=== PATIENT | female | born 1940 | race Caucasian/White ===

== ENCOUNTER 2019-01-04 07:58 | Day surgery (SDC) | payer OTHER ==
[2019-01-03 14:47] VITALS: BMI 37.4
[2019-01-04 09:36] VITALS: TEMP 98
[2019-01-04 10:12] VITALS: BP 127/63; PULSE 69
--- NOTE | 2019-01-05 11:07 | PATH ---
Surgical Pathology Report Patient Name: BRIGIDA BADILLO [facility]. Rec. #: [id number] /Age/Gender: 1940 (Age: 78) / F Account: [id number] Location: U-ENDOSCOPY Taken: 01/04/2019 Received: 01/04/2019 Reported: 01/05/2019 Physicians: Monica Hutson M.D. Specimen(s) Received A: DUODENUM 2ND PORTION AND BULB B: PRE PYLORIC BIOPSY C: ANTRUM AND GASTRIC BODY Clinical History Abdominal pain Postoperative diagnosis: Gastric ulcer Final Diagnosis A. DUODENUM, SECOND PORTION AND BULB, BIOPSY: DUODENAL MUCOSA WITH NO PATHOLOGIC CHANGES. NO HISTOLOGIC EVIDENCE OF GLUTEN SENSITIVE ENTEROPATHY (CELIAC SPRUE) IDENTIFIED. THIS B. 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 NO DYSPLASIA IDENTIFIED. IMMUNOSTAIN FOR H. PYLORI IS NEGATIVE. C. STOMACH, ANTRUM AND BODY, BIOPSY: MILD CHRONIC GASTRITIS WITH FOCAL INTESTINAL METAPLASIA. NO DYSPLASIA IDENTIFIED. IMMUNOSTAIN FOR H. PYLORI IS NEGATIVE. Electronically Signed Herrera Kiser M.D. Gross Description A. Received in formalin, labeled "biopsy duodenum second portion and bulb" are 3 gordon, irregular portions of soft tissue ranging from 0.4-0.7 cm. in greatest dimension. The specimens are submitted in toto in one cassette. B. Received in formalin, labeled "biopsy prepyloric ulcerated mucosa" are 6 gordon, irregular portions of soft tissue ranging from 0.3-0.5 cm. in greatest dimension. The specimens are submitted in toto in one cassette. C. Received in formalin, labeled "biopsy antrum and gastric body" are 4 gordon, irregular portions of soft tissue ranging from 0.2-0.5 cm. in greatest dimension. The specimens are submitted in toto in one cassette. 01/04/201901/04/2019
== END 2019-01-04 10:34 | disposition home or self-care (01) ==
LOC: JASU-ENDO 07:58
PROVIDERS: ATTEND Internal Medicine Gastroenterology
PROC: 0DB68ZX Excision of Stomach, Via Natural or Artificial Opening Endoscopic, Diagnostic (ICD-10-PCS; principal; 2019-01-04 09:00)
DX: K25.9 Gastric ulcer, unspecified as acute or chronic, without hemorrhage or perforation (principal); K29.70 Gastritis, unspecified, without bleeding; I10 Essential (primary) hypertension; E11.9 Type 2 diabetes mellitus without complications
CPT/HCPCS: 88305-TC; 88342-TC

== ENCOUNTER 2019-05-01 06:49 | Day surgery (SDC) | payer OTHER ==
[2019-04-28 14:45] VITALS: BMI 37.4
[2019-05-01 08:26] VITALS: TEMP 98.2
[2019-05-01 09:17] VITALS: BP 139/64; PULSE 63
--- NOTE | 2019-05-02 16:27 | PATH ---
Surgical Pathology Report Patient Name: BRIGIDA BADILLO [facility]. Rec. #: [id number] /Age/Gender: 1940 (Age: 78) / F Account: [id number] Location: U-ENDOSCOPY Taken: 05/01/2019 Received: 05/01/2019 Reported: 05/02/2019 Physicians: Monica Hutson M.D. Specimen(s) Received A: BX SECOND PORTION DUODENUM & DUODENAL BULB B: PREPYLORIC ULCER C: BX GASTRIC ANTRUM Clinical History Abdominal pain Postoperative diagnosis: Prepyloric ulcer, antral gastritis Final Diagnosis A. SECOND PORTION DUODENUM AND BULB, BIOPSY: DUODENUM MUCOSA WITH NO SIGNIFICANT PATHOLOGIC CHANGE. NO HISTOLOGIC EVIDENCE OF CELIAC DISEASE. B. PREPYLORIC ULCER, BIOPSY: GASTRIC MUCOSA WITH CHRONIC GASTRITIS, ULCERATION AND REGENERATIVE CHANGE. IMMUNOSTAINS FOR H. PYLORI IS NEGATIVE. POSITIVE FOR INTESTINAL METAPLASIA. C. GASTRIC ANTRUM, BIOPSY: GASTRIC MUCOSA WITH CHRONIC GASTRITIS. IMMUNOSTAINS FOR H. PYLORI IS NEGATIVE. NEGATIVE FOR INTESTINAL METAPLASIA. Electronically Signed Kasi Choi M.D. Gross Description A. Received in formalin, labeled "biopsy second portion of duodenum and duodenal bulb" are 3 gordon, irregular portions of soft tissue ranging from 0.4-0.5 cm. in greatest dimension. The specimens are submitted in toto in one cassette. B. Received in formalin, labeled "biopsy prepyloric ulcer" are 3 gordon, irregular portions of soft tissue averaging 0.3 cm. in greatest dimension. The specimens are submitted in toto in one cassette. C. Received in formalin, labeled "biopsy gastric antrum" are 3 gordon, irregular portions of soft tissue ranging from 0.4-0.7 cm. in greatest dimension. The specimens are submitted in toto in one cassette. DL/05/01/2019 saudi05/01/2019
== END 2019-05-01 09:23 | disposition home or self-care (01) ==
LOC: JASU-ENDO 06:49
PROVIDERS: ATTEND Internal Medicine Gastroenterology
PROC: 0DB68ZX Excision of Stomach, Via Natural or Artificial Opening Endoscopic, Diagnostic (ICD-10-PCS; 2019-05-01)
PROC: 0DB98ZX Excision of Duodenum, Via Natural or Artificial Opening Endoscopic, Diagnostic (ICD-10-PCS; principal; 2019-05-01 08:00)
DX: K25.7 Chronic gastric ulcer without hemorrhage or perforation (principal); K31.9 Disease of stomach and duodenum, unspecified; K29.50 Unspecified chronic gastritis without bleeding
CPT/HCPCS: 88305-TC; 88342-TC

== ENCOUNTER 2020-09-03 18:57 | Inpatient (IN) | payer OTHER ==
[2020-09-03] MEDS ORDERED: DEXAMETHASONE SOD PHOSPHATE 20 MG/5 ML VIAL IVPB ONE (19:30)
[2020-09-03] MEDS ORDERED: ACETAMINOPHEN 1000 MG/100 ML BAG IVPB ONE (21:04)
[2020-09-03] MEDS ORDERED: ACETAMINOPHEN INJECTION 100 ML IVPB ONE (21:11)
[2020-09-03] MEDS ORDERED: DEXAMETHASONE SOD PHOSPHATE 10 MG/1 ML VIAL ONE (21:11)
[2020-09-03 21:40] LABS: BASO % 0.4 % (0-2.0); EOS % 0.5 % (0-4.5); HEMATOCRIT 40.2 % (32.4-45.2); HEMOGLOBIN 13.4 GM/dL (10.7-15.3); LYMPH % 6.5 % (8-40); MCH 31.1 pg (25.7-33.7); MCHC 33.3 g/dl (32.0-36.0); MEAN CELL VOLUME 93.5 fl (80-96); MEAN PLT VOLUME 7.6 fl (7.5-11.1); MONO % 11.2 % (3.8-10.2); NEUT % 81.4 % (42.8-82.8); PLATELET COUNT 490 K/MM3 (134-434); RBC 4.31 M/mm3 (3.60-5.2); RDW 13.6 % (11.6-15.6); WHITE BLOOD COUNT 12.5 K/mm3 (4.0-10.0)
[2020-09-03 21:48] LABS: INR 1.21 (0.83-1.09); PROTHROMBIN TIME (PATIENT) 14.6 SEC (9.7-13.0)
[2020-09-03 21:59] LABS: CHLORIDE 92 mmol/L (98-107); SODIUM 133 mmol/L (136-145)
[2020-09-03 22:03] LABS: CALCIUM 8.5 mg/dL (8.5-10.1)
[2020-09-03 22:04] LABS: ALBUMIN 2.4 g/dl (3.4-5.0); ANION GAP 10 MMOL/L (8-16); BLOOD UREA NITROGEN 7.1 mg/dL (7-18); CO2 31 mmol/L (21-32); GLUCOSE,RANDOM 113 mg/dL (74-106); MAGNESIUM 1.9 mg/dL (1.8-2.4)
[2020-09-03 22:07] LABS: CREATININE 0.5 mg/dL (0.55-1.3); PHOSPHOROUS 2.6 mg/dL (2.5-4.9); SGOT/AST 42 U/L (15-37); SGPT/ALT 30 U/L (13-61)
[2020-09-03 22:08] LABS: TOT PROT 6.9 g/dl (6.4-8.2)
[2020-09-03 22:10] LABS: ALK PHOS 86 U/L (45-117)
[2020-09-03 22:13] LABS: N-TERMINAL BNP 335.7 pg/ml (5-450)
[2020-09-03] MEDS ORDERED: SODIUM CHLORIDE 0.9% 500 ML INFUS.BAG IV ONE (22:16)
[2020-09-03 22:29] LABS: BILIRUBIN,TOTAL 0.6 mg/dL (0.2-1); LDH 450 U/L (84-246)
[2020-09-03 22:56] LABS: ANISOCYTOSIS 1+; MACROCYTOSIS 1+; PLATELET ESTIMATE INCREASED
[2020-09-04] MEDS ORDERED: ACETAMINOPHEN 1000 MG/100 ML BAG IVPB PRN (00:41)
[2020-09-04] MEDS ORDERED: AZITHROMYCIN IVPB 500 MG in DEXTROSE 5%-WATER - 250 ML IVPB ONE (00:42)
[2020-09-04] MEDS ORDERED: SODIUM CHLORIDE 1,000 ML IV SCH ×2 (00:45→10:07)
[2020-09-04] MEDS ORDERED: AZITHROMYCIN IVPB 500 MG/250 ML BAG IVPB ONE ×2 (02:04→09:23)
[2020-09-04 02:50] LABS: EPI CELLS >36 /uL (0-25.1); HYALINE CASTS 3 /uL (0-3.1); PH,URINE 7.5 (5.0-8.0); URINE APPEARANCE CLOUDY; URINE BACTERIA 4773 /uL (0-1359); URINE BILIRUBIN NEGATIVE (NEGATIVE); URINE COLOR YELLOW; URINE GLUCOSE (UA) NEGATIVE (NEGATIVE); URINE KETONE TRACE (NEGATIVE); URINE LEUK ESTERASE 3+ (NEGATIVE); URINE NITRITE NEGATIVE (NEGATIVE); URINE PROTEIN NEGATIVE (NEGATIVE); URINE WBC 773 /uL (0-25.8)
[2020-09-04 06:08] LABS: URINE RBC 25 /uL (0-23.9)
[2020-09-04 07:48] LABS: BASO % 0.4 % (0-2.0); HEMATOCRIT 38.4 % (32.4-45.2); HEMOGLOBIN 13.1 GM/dL (10.7-15.3); MCH 31.7 pg (25.7-33.7); MEAN CELL VOLUME 93.3 fl (80-96); MEAN PLT VOLUME 7.9 fl (7.5-11.1); MONO % 5.5 % (3.8-10.2); NEUT % 87.1 % (42.8-82.8); PLATELET COUNT 477 K/MM3 (134-434); RBC 4.12 M/mm3 (3.60-5.2); RDW 13.7 % (11.6-15.6); WHITE BLOOD COUNT 7.7 K/mm3 (4.0-10.0)
[2020-09-04 08:02] LABS: ALBUMIN 2.1 g/dl (3.4-5.0); BLOOD UREA NITROGEN 6.6 mg/dL (7-18)
[2020-09-04 08:03] LABS: CALCIUM 7.9 mg/dL (8.5-10.1); MAGNESIUM 2.1 mg/dL (1.8-2.4)
[2020-09-04 08:05] LABS: CREATININE 0.5 mg/dL (0.55-1.3)
[2020-09-04 08:06] LABS: PHOSPHOROUS 2.9 mg/dL (2.5-4.9)
[2020-09-04 08:07] LABS: BILIRUBIN,TOTAL 1.3 mg/dL (0.2-1); TOT PROT 6.3 g/dl (6.4-8.2)
[2020-09-04 08:46] LABS: EPI CELLS 10 /uL (0-25.1); HYALINE CASTS 1 /uL (0-3.1); URINE APPEARANCE CLEAR; URINE BACTERIA 1173 /uL (0-1359); URINE BILIRUBIN NEGATIVE (NEGATIVE); URINE COLOR YELLOW; URINE GLUCOSE (UA) NEGATIVE (NEGATIVE); URINE KETONE NEGATIVE (NEGATIVE); URINE LEUK ESTERASE 2+ (NEGATIVE); URINE NITRITE NEGATIVE (NEGATIVE); URINE PROTEIN NEGATIVE (NEGATIVE); URINE RBC 10 /uL (0-23.9); URINE WBC 327 /uL (0-25.8)
[2020-09-04] MEDS ORDERED: ASCORBIC ACID 500 MG TABLET (FP) ONE (09:22)
[2020-09-04] MEDS ORDERED: DEXAMETHASONE SOD PHOSPHATE 10 MG/1 ML VIAL ONE (09:22)
[2020-09-04] MEDS ORDERED: FAMOTIDINE 20 MG TABLET ONE (09:22)
[2020-09-04] MEDS ORDERED: ENOXAPARIN NA (PORCINE) 40 MG/0.4 ML DISP.SYRIN SQ ONE (09:23)
[2020-09-04] MEDS ORDERED: CHOLECALCIFEROL (VIT D3) 1,000 UNIT (25 MCG) TABLET ONE (09:23)
[2020-09-04] MEDS ORDERED: ZINC SULFATE 220 MG CAPSULE (FP) ONE (09:23)
[2020-09-04] MEDS ORDERED: CEFTRIAXONE 1 GM/50 ML BAG ONE (09:23)
[2020-09-04] MEDS: ZINC SULFATE 220 MG CAPSULE (FP) PO SCH (09:42)
[2020-09-04] MEDS: ASCORBIC ACID 500 MG TABLET (FP) PO SCH ×2 (09:42→22:50)
[2020-09-04] MEDS: CHOLECALCIFEROL (VIT D3) 1,000 UNIT (25 MCG) TABLET PO SCH (09:42)
[2020-09-04] MEDS: DEXAMETHASONE SOD PHOSPHATE 4 MG/1 ML VIAL IVPUSH SCH (09:42)
[2020-09-04] MEDS: CEFTRIAXONE 1 GM in DEXTROSE 5%-WATER - 50 ML IVPB SCH (09:42)
[2020-09-04] MEDS: FAMOTIDINE 20 MG TABLET PO SCH ×2 (09:42→22:50)
[2020-09-04] MEDS: AZITHROMYCIN IVPB 250 MG in DEXTROSE 5%-WATER - 250 ML IVPB SCH (09:42)
[2020-09-04] MEDS ORDERED: ENOXAPARIN NA (PORCINE) 40 MG/0.4 ML DISP.SYRIN SQ SCH (10:00)
[2020-09-04] MEDS ORDERED: SODIUM CHLORIDE 500 ML IV STA ×2 (10:11→18:22)
[2020-09-04] MEDS: SODIUM CHLORIDE 1,000 ML IV SCH ×2 (10:38→22:51)
[2020-09-04] MEDS ORDERED: REMDESIVIR 200 MG in SODIUM CHLORIDE 210 ML IVPB ONE (16:00)
[2020-09-04] MEDS: ENOXAPARIN NA (PORCINE) 60 MG/0.6 ML DISP.SYRIN SQ SCH (22:49)
[2020-09-05 09:01] LABS: BASO % 0.2 % (0-2.0); EOS % 0.4 % (0-4.5); HEMATOCRIT 39.1 % (32.4-45.2); HEMOGLOBIN 13.1 GM/dL (10.7-15.3); LYMPH % 6.2 % (8-40); MCH 31.4 pg (25.7-33.7); MCHC 33.6 g/dl (32.0-36.0); MEAN CELL VOLUME 93.4 fl (80-96); MEAN PLT VOLUME 7.5 fl (7.5-11.1); MONO % 8.2 % (3.8-10.2); PLATELET COUNT 573 K/MM3 (134-434); RBC 4.19 M/mm3 (3.60-5.2); RDW 13.7 % (11.6-15.6)
[2020-09-05] MEDS ORDERED: PT OWN MED DRAWER 7, Y5N ONE (09:16)
[2020-09-05] MEDS ORDERED: DEXTROSE 5%-WATER - 50 ML IVPB ONE (09:16)
[2020-09-05] MEDS ORDERED: cefTRIAXone SODIUM 1 GM VIAL ONE (09:16)
[2020-09-05 09:25] LABS: CALCIUM 8.1 mg/dL (8.5-10.1)
[2020-09-05 09:26] LABS: ALBUMIN 2.2 g/dl (3.4-5.0); BLOOD UREA NITROGEN 7.6 mg/dL (7-18); MAGNESIUM 1.9 mg/dL (1.8-2.4)
[2020-09-05] MEDS: ENOXAPARIN NA (PORCINE) 60 MG/0.6 ML DISP.SYRIN SQ SCH ×2 (09:26→22:43)
[2020-09-05] MEDS: DEXAMETHASONE SOD PHOSPHATE 4 MG/1 ML VIAL IVPUSH SCH (09:26)
[2020-09-05] MEDS: CEFTRIAXONE 1 GM in DEXTROSE 5%-WATER - 50 ML IVPB SCH (09:26)
[2020-09-05 09:27] LABS: BILIRUBIN,TOTAL 1.2 mg/dL (0.2-1); TOT PROT 5.9 g/dl (6.4-8.2)
[2020-09-05] MEDS: ASCORBIC ACID 500 MG TABLET (FP) PO SCH ×2 (09:27→22:43)
[2020-09-05] MEDS: CHOLECALCIFEROL (VIT D3) 1,000 UNIT (25 MCG) TABLET PO SCH (09:27)
[2020-09-05] MEDS: FAMOTIDINE 20 MG TABLET PO SCH ×2 (09:27→22:43)
[2020-09-05] MEDS: ZINC SULFATE 220 MG CAPSULE (FP) PO SCH (09:27)
[2020-09-05] MEDS: SODIUM CHLORIDE 1,000 ML IV SCH ×2 (09:27→11:37)
[2020-09-05 09:29] LABS: CREATININE 0.4 mg/dL (0.55-1.3); PHOSPHOROUS 2.6 mg/dL (2.5-4.9)
[2020-09-05 10:13] LABS: ERYTHROCYTE SEDIMENTATION RATE 75 mm/hr (0-30)
[2020-09-05] MEDS ORDERED: POTASSIUM CHLORIDE TABS 20 MEQ TABLET.ER (FP) PO ONE (11:00)
[2020-09-05 11:14] LABS: ANISOCYTOSIS 1+; MACROCYTOSIS 1+; PLATELET ESTIMATE INCREASED
[2020-09-05] MEDS: AZITHROMYCIN IVPB 250 MG in DEXTROSE 5%-WATER - 250 ML IVPB SCH (11:26)
[2020-09-05] MEDS: KCL 10 MEQ IVPB 10 MEQ/100 ML INFUS.BAG IVPB SCH ×3 (11:38→22:43)
[2020-09-05] MEDS ORDERED: AZITHROMYCIN IVPB 250 MG in DEXTROSE 5%-WATER - 250 ML IVPB ONE (15:14)
[2020-09-05] MEDS ORDERED: ACETAMINOPHEN 500 MG TABLET (FP) PO PRN (15:46)
[2020-09-05] MEDS: REMDESIVIR 100 MG in SODIUM CHLORIDE 230 ML IVPB SCH (18:03)
[2020-09-05] MEDS ORDERED: KCL 10 MEQ IVPB 10 MEQ/100 ML INFUS.BAG IVPB SCH (22:30)
[2020-09-06] MEDS: SODIUM CHLORIDE 1,000 ML IV SCH (05:27)
[2020-09-06 09:10] LABS: BASO % 0.3 % (0-2.0); EOS % 0.6 % (0-4.5); HEMATOCRIT 36.9 % (32.4-45.2); HEMOGLOBIN 12.1 GM/dL (10.7-15.3); LYMPH % 9.5 % (8-40); MCH 30.9 pg (25.7-33.7); MCHC 32.9 g/dl (32.0-36.0); MEAN CELL VOLUME 93.9 fl (80-96); MEAN PLT VOLUME 7.8 fl (7.5-11.1); MONO % 10.3 % (3.8-10.2); NEUT % 79.3 % (42.8-82.8); PLATELET COUNT 540 K/MM3 (134-434); RBC 3.92 M/mm3 (3.60-5.2); RDW 13.6 % (11.6-15.6); WHITE BLOOD COUNT 14.4 K/mm3 (4.0-10.0)
[2020-09-06 09:31] LABS: ALBUMIN 2.1 g/dl (3.4-5.0); BLOOD UREA NITROGEN 9.6 mg/dL (7-18)
[2020-09-06 09:34] LABS: CREATININE 0.4 mg/dL (0.55-1.3); PHOSPHOROUS 2.7 mg/dL (2.5-4.9)
[2020-09-06 09:35] LABS: TOT PROT 5.6 g/dl (6.4-8.2)
[2020-09-06 09:37] LABS: BILIRUBIN,TOTAL 0.5 mg/dL (0.2-1)
[2020-09-06 10:00] LABS: ERYTHROCYTE SEDIMENTATION RATE 74 mm/hr (0-30)
[2020-09-06] MEDS ORDERED: cefTRIAXone SODIUM 1 GM VIAL ONE (10:08)
[2020-09-06] MEDS ORDERED: DEXTROSE 5%-WATER - 50 ML IVPB ONE (10:08)
[2020-09-06] MEDS: CHOLECALCIFEROL (VIT D3) 1,000 UNIT (25 MCG) TABLET PO SCH (10:11)
[2020-09-06] MEDS: ASCORBIC ACID 500 MG TABLET (FP) PO SCH ×2 (10:11→22:51)
[2020-09-06] MEDS: DEXAMETHASONE SOD PHOSPHATE 4 MG/1 ML VIAL IVPUSH SCH (10:11)
[2020-09-06] MEDS: ENOXAPARIN NA (PORCINE) 60 MG/0.6 ML DISP.SYRIN SQ SCH ×2 (10:11→22:51)
[2020-09-06] MEDS: FAMOTIDINE 20 MG TABLET PO SCH ×2 (10:11→22:51)
[2020-09-06] MEDS: CEFTRIAXONE 1 GM in DEXTROSE 5%-WATER - 50 ML IVPB SCH (10:12)
[2020-09-06] MEDS: ZINC SULFATE 220 MG CAPSULE (FP) PO SCH (10:14)
[2020-09-06] MEDS ORDERED: guaiFENesin/D-METHORPHAN HB 10 ML UNIT-DOSE CUPS PO PRN (10:16)
[2020-09-06 11:07] LABS: PLATELET ESTIMATE INCREASED
[2020-09-06] MEDS: AZITHROMYCIN IVPB 250 MG in DEXTROSE 5%-WATER - 250 ML IVPB SCH (11:37)
[2020-09-06 12:05] VITALS: BMI 25.5
[2020-09-06] MEDS: REMDESIVIR 100 MG in SODIUM CHLORIDE 230 ML IVPB SCH (16:07)
[2020-09-07 09:19] LABS: BASO % 0.3 % (0-2.0); EOS % 0.7 % (0-4.5); HEMATOCRIT 38.3 % (32.4-45.2); HEMOGLOBIN 12.8 GM/dL (10.7-15.3); LYMPH % 13.9 % (8-40); MCH 31.5 pg (25.7-33.7); MCHC 33.4 g/dl (32.0-36.0); MEAN CELL VOLUME 94.4 fl (80-96); MEAN PLT VOLUME 7.7 fl (7.5-11.1); MONO % 10.6 % (3.8-10.2); NEUT % 74.5 % (42.8-82.8); PLATELET COUNT 555 K/MM3 (134-434); RBC 4.06 M/mm3 (3.60-5.2); RDW 13.9 % (11.6-15.6); WHITE BLOOD COUNT 13.5 K/mm3 (4.0-10.0)
[2020-09-07 09:55] LABS: ALBUMIN 2.2 g/dl (3.4-5.0); BLOOD UREA NITROGEN 11.6 mg/dL (7-18)
[2020-09-07 09:57] LABS: CALCIUM 8.1 mg/dL (8.5-10.1)
[2020-09-07 10:00] LABS: PHOSPHOROUS 3.1 mg/dL (2.5-4.9)
[2020-09-07 10:01] LABS: BILIRUBIN,TOTAL 0.5 mg/dL (0.2-1); CREATININE 0.4 mg/dL (0.55-1.3); TOT PROT 5.8 g/dl (6.4-8.2)
[2020-09-07] MEDS ORDERED: cefTRIAXone SODIUM 1 GM VIAL ONE (10:11)
[2020-09-07] MEDS ORDERED: PT OWN MED DRAWER 7, Y5N ONE (10:11)
[2020-09-07] MEDS ORDERED: DEXTROSE 5%-WATER - 50 ML IVPB ONE (10:11)
[2020-09-07] MEDS: CEFTRIAXONE 1 GM in DEXTROSE 5%-WATER - 50 ML IVPB SCH (10:13)
[2020-09-07] MEDS: DEXAMETHASONE SOD PHOSPHATE 4 MG/1 ML VIAL IVPUSH SCH (10:17)
[2020-09-07] MEDS: ZINC SULFATE 220 MG CAPSULE (FP) PO SCH (10:17)
[2020-09-07] MEDS: ENOXAPARIN NA (PORCINE) 60 MG/0.6 ML DISP.SYRIN SQ SCH ×2 (10:17→21:58)
[2020-09-07] MEDS: FAMOTIDINE 20 MG TABLET PO SCH ×2 (10:17→21:58)
[2020-09-07] MEDS: CHOLECALCIFEROL (VIT D3) 1,000 UNIT (25 MCG) TABLET PO SCH (10:17)
[2020-09-07] MEDS: ASCORBIC ACID 500 MG TABLET (FP) PO SCH ×2 (10:17→21:58)
[2020-09-07] MEDS: AZITHROMYCIN IVPB 250 MG in DEXTROSE 5%-WATER - 250 ML IVPB SCH (11:19)
[2020-09-07 11:37] LABS: ERYTHROCYTE SEDIMENTATION RATE 53 mm/hr (0-30)
[2020-09-07 11:51] LABS: ANISOCYTOSIS 1+; MACROCYTOSIS 1+; PLATELET ESTIMATE INCREASED
[2020-09-07] MEDS: REMDESIVIR 100 MG in SODIUM CHLORIDE 230 ML IVPB SCH (16:52)
[2020-09-08 10:02] LABS: BASO % 0.4 % (0-2.0); EOS % 0.3 % (0-4.5); HEMATOCRIT 38.4 % (32.4-45.2); HEMOGLOBIN 13.1 GM/dL (10.7-15.3); LYMPH % 12.9 % (8-40); MCH 32.1 pg (25.7-33.7); MEAN CELL VOLUME 94.2 fl (80-96); MONO % 10.8 % (3.8-10.2); NEUT % 75.6 % (42.8-82.8); PLATELET COUNT 622 K/MM3 (134-434); RBC 4.08 M/mm3 (3.60-5.2); WHITE BLOOD COUNT 15.5 K/mm3 (4.0-10.0)
[2020-09-08] MEDS ORDERED: PT OWN MED DRAWER 7, Y5N ONE (10:16)
[2020-09-08] MEDS ORDERED: cefTRIAXone SODIUM 1 GM VIAL ONE (10:16)
[2020-09-08] MEDS ORDERED: DEXTROSE 5%-WATER - 50 ML IVPB ONE (10:17)
[2020-09-08] MEDS: ASCORBIC ACID 500 MG TABLET (FP) PO SCH ×2 (10:20→21:38)
[2020-09-08] MEDS: ZINC SULFATE 220 MG CAPSULE (FP) PO SCH (10:20)
[2020-09-08] MEDS: FAMOTIDINE 20 MG TABLET PO SCH ×2 (10:20→21:38)
[2020-09-08] MEDS: CHOLECALCIFEROL (VIT D3) 1,000 UNIT (25 MCG) TABLET PO SCH (10:20)
[2020-09-08] MEDS: ENOXAPARIN NA (PORCINE) 60 MG/0.6 ML DISP.SYRIN SQ SCH ×2 (10:20→21:38)
[2020-09-08] MEDS: CEFTRIAXONE 1 GM in DEXTROSE 5%-WATER - 50 ML IVPB SCH (10:21)
[2020-09-08] MEDS: DEXAMETHASONE SOD PHOSPHATE 4 MG/1 ML VIAL IVPUSH SCH (10:21)
[2020-09-08 10:24] LABS: ALBUMIN 2.3 g/dl (3.4-5.0); CALCIUM 8.4 mg/dL (8.5-10.1)
[2020-09-08 10:26] LABS: BLOOD UREA NITROGEN 13.9 mg/dL (7-18)
[2020-09-08 10:28] LABS: CREATININE 0.6 mg/dL (0.55-1.3)
[2020-09-08 10:30] LABS: BILIRUBIN,TOTAL 0.4 mg/dL (0.2-1); TOT PROT 6.1 g/dl (6.4-8.2)
[2020-09-08] MEDS: AZITHROMYCIN IVPB 250 MG in DEXTROSE 5%-WATER - 250 ML IVPB SCH (11:10)
[2020-09-08 12:57] LABS: ANISOCYTOSIS 1+; MACROCYTOSIS 1+; PLATELET ESTIMATE INCREASED
[2020-09-08] MEDS ORDERED: FUROSEMIDE 40 MG/4 ML INJECTABLE VIAL IVPUSH ONE (13:22)
[2020-09-08] MEDS: POLYETHYLENE GLYCOL 3350 119 GM BTL PO SCH (16:56)
[2020-09-08] MEDS: REMDESIVIR 100 MG in SODIUM CHLORIDE 230 ML IVPB SCH (16:57)
[2020-09-09 08:42] LABS: BASO % 0.4 % (0-2.0); EOS % 0.1 % (0-4.5); HEMATOCRIT 39.1 % (32.4-45.2); HEMOGLOBIN 13.1 GM/dL (10.7-15.3); LYMPH % 14.5 % (8-40); MCH 31.4 pg (25.7-33.7); MCHC 33.6 g/dl (32.0-36.0); MEAN CELL VOLUME 93.4 fl (80-96); MONO % 12.1 % (3.8-10.2); NEUT % 72.9 % (42.8-82.8); PLATELET COUNT 574 K/MM3 (134-434); RBC 4.19 M/mm3 (3.60-5.2); WHITE BLOOD COUNT 14.9 K/mm3 (4.0-10.0)
[2020-09-09 08:57] LABS: CALCIUM 8.3 mg/dL (8.5-10.1)
[2020-09-09 08:58] LABS: ALBUMIN 2.3 g/dl (3.4-5.0)
[2020-09-09 09:01] LABS: CREATININE 0.4 mg/dL (0.55-1.3)
[2020-09-09 09:02] LABS: BILIRUBIN,TOTAL 0.5 mg/dL (0.2-1)
[2020-09-09 09:04] LABS: TOT PROT 5.8 g/dl (6.4-8.2)
[2020-09-09] MEDS ORDERED: PT OWN MED DRAWER 7, Y5N ONE (09:41)
[2020-09-09] MEDS ORDERED: DEXTROSE 5%-WATER - 50 ML IVPB ONE (09:41)
[2020-09-09] MEDS ORDERED: cefTRIAXone SODIUM 1 GM VIAL ONE (09:41)
[2020-09-09] MEDS: ENOXAPARIN NA (PORCINE) 60 MG/0.6 ML DISP.SYRIN SQ SCH ×2 (09:50→22:15)
[2020-09-09] MEDS: DEXAMETHASONE SOD PHOSPHATE 4 MG/1 ML VIAL IVPUSH SCH (09:50)
[2020-09-09] MEDS: CHOLECALCIFEROL (VIT D3) 1,000 UNIT (25 MCG) TABLET PO SCH (09:51)
[2020-09-09] MEDS: ZINC SULFATE 220 MG CAPSULE (FP) PO SCH (09:51)
[2020-09-09] MEDS: AZITHROMYCIN IVPB 250 MG in DEXTROSE 5%-WATER - 250 ML IVPB SCH (09:51)
[2020-09-09] MEDS: POLYETHYLENE GLYCOL 3350 119 GM BTL PO SCH (09:51)
[2020-09-09] MEDS: ASCORBIC ACID 500 MG TABLET (FP) PO SCH ×2 (09:51→22:15)
[2020-09-09] MEDS: FAMOTIDINE 20 MG TABLET PO SCH ×2 (09:51→22:15)
[2020-09-09] MEDS: CEFTRIAXONE 1 GM in DEXTROSE 5%-WATER - 50 ML IVPB SCH (12:37)
[2020-09-09 12:40] LABS: N-TERMINAL BNP 233.5 pg/ml (5-450)
[2020-09-10 08:25] LABS: BASO % 0.4 % (0-2.0); EOS % 0.1 % (0-4.5); HEMATOCRIT 38.9 % (32.4-45.2); LYMPH % 13.4 % (8-40); MCH 31.7 pg (25.7-33.7); MCHC 33.4 g/dl (32.0-36.0); MEAN CELL VOLUME 94.9 fl (80-96); MEAN PLT VOLUME 8.1 fl (7.5-11.1); MONO % 13.4 % (3.8-10.2); NEUT % 72.7 % (42.8-82.8); PLATELET COUNT 508 K/MM3 (134-434); RDW 14.2 % (11.6-15.6)
[2020-09-10 08:46] LABS: CALCIUM 8.3 mg/dL (8.5-10.1)
[2020-09-10 08:47] LABS: ALBUMIN 2.3 g/dl (3.4-5.0); BLOOD UREA NITROGEN 17.2 mg/dL (7-18); MAGNESIUM 2.4 mg/dL (1.8-2.4)
[2020-09-10 08:50] LABS: CREATININE 0.4 mg/dL (0.55-1.3); PHOSPHOROUS 4.2 mg/dL (2.5-4.9)
[2020-09-10 08:52] LABS: BILIRUBIN,TOTAL 0.6 mg/dL (0.2-1); TOT PROT 5.9 g/dl (6.4-8.2)
[2020-09-10 09:45] LABS: ERYTHROCYTE SEDIMENTATION RATE 30 mm/hr (0-30)
[2020-09-10] MEDS ORDERED: cefTRIAXone SODIUM 1 GM VIAL ONE (10:50)
[2020-09-10] MEDS ORDERED: DEXTROSE 5%-WATER - 50 ML IVPB ONE (10:51)
[2020-09-10] MEDS: ENOXAPARIN NA (PORCINE) 60 MG/0.6 ML DISP.SYRIN SQ SCH ×2 (11:04→21:59)
[2020-09-10] MEDS: CEFTRIAXONE 1 GM in DEXTROSE 5%-WATER - 50 ML IVPB SCH (11:04)
[2020-09-10] MEDS: DEXAMETHASONE SOD PHOSPHATE 4 MG/1 ML VIAL IVPUSH SCH (11:05)
[2020-09-10] MEDS: CHOLECALCIFEROL (VIT D3) 1,000 UNIT (25 MCG) TABLET PO SCH (11:05)
[2020-09-10] MEDS: FAMOTIDINE 20 MG TABLET PO SCH ×2 (11:05→22:00)
[2020-09-10] MEDS: ASCORBIC ACID 500 MG TABLET (FP) PO SCH ×2 (11:06→22:00)
[2020-09-10] MEDS: ZINC SULFATE 220 MG CAPSULE (FP) PO SCH (11:06)
[2020-09-10] MEDS: POLYETHYLENE GLYCOL 3350 119 GM BTL PO SCH (11:38)
[2020-09-11 09:05] LABS: BASO % 0.6 % (0-2.0); EOS % 0.1 % (0-4.5); HEMATOCRIT 39.3 % (32.4-45.2); HEMOGLOBIN 13.2 GM/dL (10.7-15.3); LYMPH % 15.2 % (8-40); MCH 31.5 pg (25.7-33.7); MCHC 33.7 g/dl (32.0-36.0); MEAN CELL VOLUME 93.7 fl (80-96); MEAN PLT VOLUME 8.4 fl (7.5-11.1); MONO % 11.8 % (3.8-10.2); NEUT % 72.3 % (42.8-82.8); PLATELET COUNT 457 K/MM3 (134-434); RDW 14.4 % (11.6-15.6); WHITE BLOOD COUNT 12.9 K/mm3 (4.0-10.0)
[2020-09-11 09:18] LABS: ALBUMIN 2.5 g/dl (3.4-5.0); BLOOD UREA NITROGEN 16.4 mg/dL (7-18); CALCIUM 8.7 mg/dL (8.5-10.1); MAGNESIUM 2.4 mg/dL (1.8-2.4)
[2020-09-11 09:21] LABS: CREATININE 0.5 mg/dL (0.55-1.3)
[2020-09-11 09:23] LABS: BILIRUBIN,TOTAL 0.8 mg/dL (0.2-1)
[2020-09-11] MEDS ORDERED: DEXTROSE 5%-WATER - 50 ML IVPB ONE (09:44)
[2020-09-11] MEDS ORDERED: cefTRIAXone SODIUM 1 GM VIAL ONE (09:44)
[2020-09-11] MEDS: CHOLECALCIFEROL (VIT D3) 1,000 UNIT (25 MCG) TABLET PO SCH (09:55)
[2020-09-11] MEDS: DEXAMETHASONE SOD PHOSPHATE 4 MG/1 ML VIAL IVPUSH SCH (09:55)
[2020-09-11] MEDS: ASCORBIC ACID 500 MG TABLET (FP) PO SCH ×2 (09:55→21:07)
[2020-09-11] MEDS: FAMOTIDINE 20 MG TABLET PO SCH ×2 (09:55→21:07)
[2020-09-11] MEDS: ENOXAPARIN NA (PORCINE) 60 MG/0.6 ML DISP.SYRIN SQ SCH ×2 (09:55→21:07)
[2020-09-11] MEDS: ZINC SULFATE 220 MG CAPSULE (FP) PO SCH (09:55)
[2020-09-11 10:16] LABS: ERYTHROCYTE SEDIMENTATION RATE 49 mm/hr (0-30)
[2020-09-11] MEDS: POLYETHYLENE GLYCOL 3350 119 GM BTL PO SCH (12:51)
[2020-09-12 08:46] LABS: BASO % 0.4 % (0-2.0); EOS % 0.3 % (0-4.5); HEMATOCRIT 38.9 % (32.4-45.2); HEMOGLOBIN 12.8 GM/dL (10.7-15.3); LYMPH % 19.1 % (8-40); MCH 31.4 pg (25.7-33.7); MCHC 32.9 g/dl (32.0-36.0); MEAN CELL VOLUME 95.3 fl (80-96); MEAN PLT VOLUME 9.3 fl (7.5-11.1); MONO % 11.6 % (3.8-10.2); NEUT % 68.6 % (42.8-82.8); PLATELET COUNT 414 K/MM3 (134-434); RBC 4.08 M/mm3 (3.60-5.2); RDW 14.2 % (11.6-15.6); WHITE BLOOD COUNT 13.2 K/mm3 (4.0-10.0)
[2020-09-12 09:11] LABS: ALBUMIN 2.5 g/dl (3.4-5.0); CALCIUM 8.6 mg/dL (8.5-10.1); MAGNESIUM 2.4 mg/dL (1.8-2.4)
[2020-09-12 09:12] LABS: BLOOD UREA NITROGEN 16.9 mg/dL (7-18)
[2020-09-12 09:14] LABS: CREATININE 0.4 mg/dL (0.55-1.3)
[2020-09-12 09:15] LABS: PHOSPHOROUS 3.7 mg/dL (2.5-4.9)
[2020-09-12 09:16] LABS: TOT PROT 5.8 g/dl (6.4-8.2)
[2020-09-12] MEDS ORDERED: DEXAMETHASONE 4 MG TABLET (FP) PO SCH (10:00)
[2020-09-12] MEDS: ASCORBIC ACID 500 MG TABLET (FP) PO SCH (10:41)
[2020-09-12] MEDS: CHOLECALCIFEROL (VIT D3) 1,000 UNIT (25 MCG) TABLET PO SCH (10:41)
[2020-09-12] MEDS: POLYETHYLENE GLYCOL 3350 119 GM BTL PO SCH (10:42)
[2020-09-12] MEDS: FAMOTIDINE 20 MG TABLET PO SCH (10:42)
[2020-09-12] MEDS: ZINC SULFATE 220 MG CAPSULE (FP) PO SCH (10:42)
[2020-09-12] MEDS: ENOXAPARIN NA (PORCINE) 60 MG/0.6 ML DISP.SYRIN SQ SCH (10:42)
[2020-09-12 12:39] LABS: ERYTHROCYTE SEDIMENTATION RATE 17 mm/hr (0-30)
[2020-09-12 17:32] VITALS: BP 115/51; PULSE 75; TEMP 98.5
== END 2020-09-12 20:27 | disposition home or self-care (01) | DRG 177 ==
LOC: JER 18:57 → JERBED 09-04 00:36 → J5S 09-04 19:38
PROVIDERS: ADMIT Internal Medicine
PROC: 8E0ZXY6 Isolation (ICD-10-PCS; 2020-09-03)
PROC: XW033E5 Introduction of Remdesivir Anti-infective into Peripheral Vein, Percutaneous Approach, New Technology Group 5 (ICD-10-PCS; principal; 2020-09-04)
DX: U07.1 COVID-19 (principal); J12.89 Other viral pneumonia; J96.01 Acute respiratory failure with hypoxia; E87.2 Acidosis; E87.1 Hypo-osmolality and hyponatremia; I10 Essential (primary) hypertension; E78.5 Hyperlipidemia, unspecified; R73.03 Prediabetes; K57.90 Diverticulosis of intestine, part unspecified, without perforation or abscess without bleeding; K21.9 Gastro-esophageal reflux disease without esophagitis
CPT/HCPCS: 36415; 71045-TC-FY; 71046-TC-FY; 80053; 81003; 82550; 82728; 83605; 83615; 83735; 83880; 84100; 84484; 85025; 85379; 85610; 85651; 86140; 87040; 87070; 87077; 87086; 87205; 87804; 87899; 93005; 93010; 97116-GP; 97162-GP; 99285-25; C9399; C9803; J0131; U0003

== ENCOUNTER 2022-01-22 04:33 | Day surgery (SDC) | payer OTHER ==
[2022-01-21 15:35] VITALS: BMI 33.7
[2022-01-22 12:21] VITALS: TEMP 98
[2022-01-22 12:57] VITALS: PULSE 67
[2022-01-22 13:13] VITALS: BP 134/59
== END 2022-01-22 13:23 | disposition home or self-care (01) ==
LOC: JASU-ENDO 04:33
PROVIDERS: ATTEND Internal Medicine Gastroenterology
PROC: 0DJD8ZZ Inspection of Lower Intestinal Tract, Via Natural or Artificial Opening Endoscopic (ICD-10-PCS; principal; 2022-01-22 11:00)
DX: Z12.11 Encounter for screening for malignant neoplasm of colon (principal); K57.30 Diverticulosis of large intestine without perforation or abscess without bleeding; K64.8 Other hemorrhoids

== ENCOUNTER 2022-02-17 21:03 | Emergency (ER) | payer OTHER ==
[2022-02-17 21:25] VITALS: TEMP 98.4; BMI 35.0
[2022-02-17] MEDS ORDERED: ACETAMINOPHEN 325 MG TABLET (FP) PO ONE ×2 (22:17)
[2022-02-17] MEDS ORDERED: ACETAMINOPHEN 325 MG TABLET (FP) ONE (22:44)
[2022-02-17 23:06] LABS: BASO % 0.6 % (0-2.0); EOS % 0.3 % (0-4.5); HEMATOCRIT 40.7 % (32.4-45.2); HEMOGLOBIN 13.3 GM/dL (10.7-15.3); LYMPH % 20.1 % (8-40); MCH 30.1 pg (25.7-33.7); MCHC 32.7 g/dl (32.0-36.0); MEAN CELL VOLUME 92.2 fl (80-96); MEAN PLT VOLUME 8.2 fl (7.5-11.1); MONO % 7.7 % (3.8-10.2); NEUT % 71.3 % (42.8-82.8); PLATELET COUNT 274 10^3/uL (134-434); RBC 4.41 M/mm3 (3.60-5.2); RDW 14.1 % (11.6-15.6); WHITE BLOOD COUNT 14.5 K/mm3 (4.0-10.0)
[2022-02-18 07:38] VITALS: BP 169/79; PULSE 78
== END 2022-02-17 23:43 | disposition home or self-care (01) ==
LOC: JER 21:03
DX: R51.9 Headache, unspecified (principal)
CPT/HCPCS: 36415; 85025; 93005; 93010; 99284-25

== ENCOUNTER 2022-07-16 03:57 | Day surgery (SDC) | payer OTHER ==
[2022-07-14 15:17] VITALS: BMI 35.6
[2022-07-16] MEDS ORDERED: KETAMINE HCL 500 MG/10 ML VIAL ONE (07:08)
[2022-07-16] MEDS ORDERED: SUCCINYLCHOLINE CHLORIDE 200 MG/10 ML SYRINGE ONE (07:08)
[2022-07-16 09:58] VITALS: RESP 18
[2022-07-16 12:04] VITALS: BP 146/63; PULSE 80
[2022-07-16 13:52] VITALS: TEMP 98
== END 2022-07-16 12:23 | disposition home or self-care (01) ==
LOC: JASU-ENDO 03:57
PROVIDERS: ATTEND Internal Medicine Gastroenterology
PROC: 0DB78ZX Excision of Stomach, Pylorus, Via Natural or Artificial Opening Endoscopic, Diagnostic (ICD-10-PCS; 2022-07-16)
PROC: 0DB68ZX Excision of Stomach, Via Natural or Artificial Opening Endoscopic, Diagnostic (ICD-10-PCS; principal; 2022-07-16 08:00)
DX: K29.50 Unspecified chronic gastritis without bleeding (principal)
CPT/HCPCS: 88305-TC; 88342-TC

== ENCOUNTER 2024-06-21 08:23 | Observation (INO) | payer OTHER ==
[2024-06-21 10:13] LABS: BASO % 0.7 % (0-2.0); EOS % 0.7 % (0-4.5); HEMATOCRIT 41.2 % (32.4-45.2); HEMOGLOBIN 13.2 GM/dL (10.7-15.3); LYMPH % 24.7 % (8-40); MCH 30.2 pg (25.7-33.7); MCHC 32.1 g/dl (32.0-36.0); MEAN PLT VOLUME 8.3 fl (7.5-11.1); MONO % 8.8 % (3.8-10.2); NEUT % 65.1 % (42.8-82.8); PLATELET COUNT 340 10^3/uL (134-434); RBC 4.38 M/mm3 (3.60-5.2); RDW 14.1 % (11.6-15.6); WHITE BLOOD COUNT 11.6 K/mm3 (4.0-10.0)
[2024-06-21 10:19] LABS: INR 1.06 (0.83-1.09)
[2024-06-21 10:32] LABS: POTASSIUM 4.4 mmol/L (3.5-5.1)
[2024-06-21 10:36] LABS: CALCIUM 9.3 mg/dL (8.5-10.1)
[2024-06-21 10:37] LABS: ALBUMIN 3.4 g/dl (3.4-5.0); BLOOD UREA NITROGEN 11.6 mg/dL (7-18)
[2024-06-21 10:40] LABS: CREATININE 0.6 mg/dL (0.55-1.3)
[2024-06-21 10:41] LABS: BILIRUBIN,TOTAL 0.8 mg/dL (0.2-1); TOT PROT 7.3 g/dl (6.4-8.2)
[2024-06-21] MEDS: SODIUM CHLORIDE 500 ML IV STA (11:32)
[2024-06-21] MEDS ORDERED: ATORVASTATIN CA 10 MG TABLET (FP) ONE (15:05)
[2024-06-21 15:41] VITALS: BMI 34.4
[2024-06-21] MEDS: ATORVASTATIN CA 10 MG TABLET (FP) PO SCH ×2 (16:11→21:33)
[2024-06-21] MEDS: PANTOPRAZOLE SODIUM 40 MG VIAL IVPUSH SCH (16:53)
[2024-06-21 17:42] LABS: MCH 30.8 pg (25.7-33.7); MCHC 33.2 g/dl (32.0-36.0); MEAN CELL VOLUME 92.5 fl (80-96); MEAN PLT VOLUME 7.9 fl (7.5-11.1); PLATELET COUNT 308 10^3/uL (134-434); RBC 3.89 M/mm3 (3.60-5.2); RDW 13.8 % (11.6-15.6); WHITE BLOOD COUNT 12.7 K/mm3 (4.0-10.0)
[2024-06-22 06:54] LABS: EOS % 1.4 % (0-4.5); HEMOGLOBIN 12.4 GM/dL (10.7-15.3); LYMPH % 31.4 % (8-40); MCH 30.7 pg (25.7-33.7); MCHC 32.7 g/dl (32.0-36.0); MEAN CELL VOLUME 93.9 fl (80-96); MONO % 9.9 % (3.8-10.2); NEUT % 56.3 % (42.8-82.8); RBC 4.05 M/mm3 (3.60-5.2); RDW 13.8 % (11.6-15.6); WHITE BLOOD COUNT 11.5 K/mm3 (4.0-10.0)
[2024-06-22 07:12] LABS: POTASSIUM 3.6 mmol/L (3.5-5.1)
[2024-06-22 07:17] LABS: ALBUMIN 3.2 g/dl (3.4-5.0); BLOOD UREA NITROGEN 10.5 mg/dL (7-18); CALCIUM 8.7 mg/dL (8.5-10.1)
[2024-06-22 07:20] LABS: CREATININE 0.6 mg/dL (0.55-1.3)
[2024-06-22 07:21] LABS: PHOSPHOROUS 3.5 mg/dL (2.5-4.9)
[2024-06-22 07:22] LABS: TOT PROT 6.6 g/dl (6.4-8.2)
[2024-06-22 07:31] VITALS: RESP 18
[2024-06-22 09:14] LABS: MEAN PLT VOLUME 9.3 fl (7.5-11.1); PLATELET COUNT 266 10^3/uL (134-434)
[2024-06-22] MEDS: POLYETHYLENE GLYCOL (HEALTHYLAX) 3350 17 GM PACKET PO SCH (09:56)
[2024-06-22] MEDS: LOSARTAN POTASSIUM 25 MG TABLET PO SCH (09:57)
[2024-06-22] MEDS: HYDROCHLOROTHIAZIDE 12.5 MG CAPSULE (FP) PO SCH (09:58)
[2024-06-22 10:09] VITALS: BP 130/51; PULSE 75; TEMP 98.6
== END 2024-06-22 10:38 | disposition home or self-care (01) ==
LOC: JER 08:23 → JERBED 13:20 → J7W 15:18
PROVIDERS: ADMIT Internal Medicine; ATTEND Nurse Practitioner Family
PROC: 3E0337Z Introduction of Electrolytic and Water Balance Substance into Peripheral Vein, Percutaneous Approach (ICD-10-PCS; principal; 2024-06-21)
DX: K62.5 Hemorrhage of anus and rectum (principal); K29.70 Gastritis, unspecified, without bleeding; E78.5 Hyperlipidemia, unspecified; K21.9 Gastro-esophageal reflux disease without esophagitis; K27.9 Peptic ulcer, site unspecified, unspecified as acute or chronic, without hemorrhage or perforation; I10 Essential (primary) hypertension; K81.9 Cholecystitis, unspecified; Z90.49 Acquired absence of other specified parts of digestive tract; Z90.79 Acquired absence of other genital organ(s); Z88.5 Allergy status to narcotic agent
CPT/HCPCS: 36415; 71045-TC-FY; 80053; 83735; 84100; 85025; 85027; 85610; 86850; 86900; 86901; 93005; 93010; 96360; 99285-25; G0378